=== PATIENT | female | born 1935 | race Caucasian/White ===

== ENCOUNTER → 2020-03-13 11:31 | Outpatient (BNVA) | payer MEDICARE, SELFPAY | PROVIDERS: Visit Provider Nurse Practitioner | DX: Z20.828 Contact with and (suspected) exposure to other viral communicable diseases (principal) | CPT/HCPCS: 87635 ==

== ENCOUNTER 2020-03-18 08:46 | Outpatient (CLI) | payer MEDICARE, SELFPAY ==
[2020-03-18 08:53] VITALS: BP 148/83; PULSE 82; RESP 19; TEMP 37.1; O2SAT 96
[2020-03-18 09:07] VITALS: BMI 26.5
[2020-03-18 09:08] VITALS: BP 142/84; PULSE 81; RESP 20; TEMP 36.7; O2SAT 96
--- NOTE | 2020-03-18 09:08 | AMB.MCA ---
Patient Information Referred by: Alo Symptom onset date: 03/11/20 COVID 19 common symptoms: positive cough, non-productive cough, dyspnea, fatigue and body aches COVID 19 other sytmptoms: negative chest pressure, chest pain, pleuritic pain, requiring oxygen, requiring more oxygen, respiratory distress, cyanosis, lethargy, confusion, new neurological complaints or other concerning symptoms Severity: moderate Treatment prior to arrival: none [facility] COVID test results: SARS-CoV-2 RNA (RT-PCR) Detected (NOT DETECTED) A 03/13/20 11:31 03/13/20 Criteria/Plan Inclusion/Exclusion Criteria weight >/= 40kg, + direct test </= 10 days ago and symptom onset </= 10 days ago age >/= 65 not requiring hospitalization, not requiring oxygen (if not chronically on oxygen) and no increase oxygen requirement (if chronically on oxygen) Patient education patient/caregiver received/reviewed fact sheet, Emergency Use Authorization/unapproved drug status discussed with patient/caregiver, alternatives to this treatment discussed with patient/caregiver, risks and benefits of medication reviewed with patient/caregiver, patient/caregiver given opportunity for questions, which were answered and patient/caregiver consents to receiving Monoclonal Antibody Treatment Plan for treatment Meets criteria for Monoclonal Antibody infusion Ordering Monoclonal Antibody infusion for today
[2020-03-18 09:55] VITALS: BP 150/91; PULSE 80; RESP 18; TEMP 36.8; O2SAT 96
[2020-03-18 10:23] VITALS: BP 138/72; PULSE 73; RESP 18; TEMP 36.8; O2SAT 95
--- NOTE | 2020-03-18 10:50 | PC.NURSE ---
Prn note Patient BAM infusion complete. Patient tolerated well with no side effects noted. Will continue to monitor post infusion.
[2020-03-18 11:35] VITALS: BP 148/83; PULSE 82; RESP 19; TEMP 37.1; O2SAT 96
--- NOTE | 2020-03-19 16:40 | DCPLANNER ---
Addendum entered by Hannah Cortez 03/31/20 13:39: manager small business called to check on patient after receiving the BAM infusion. manager small business spoke with patient, she stated that she was feeling much better, it took a little longer for her to feel better, but she is feeling much better. Original Note: manager small business had message that patient received the BAM infusion. manager small business called to check on patient after receiving the BAM infusion. Patient stated that she tolorated the infusion just fine. Before the infusion, patient had a bad headache, joint pain all over, very tired, no energy, low grade fever, and had a cough. After the infusion patient stated that she is still tired, very little energy, the joint pain is not as bad, still has a little cough. Patient stated that she will schedule a follow up appointment with primary care provider.
== END 2020-03-18 11:46 | disposition home or self-care (01) ==
DX: U07.1 COVID-19 (principal)
CPT/HCPCS: 96365; J7050

== ENCOUNTER → 2022-01-24 11:33 | Outpatient (BNVA) | payer MEDICARE, SELFPAY | PROVIDERS: PCP Clinical Nurse Specialist Adult Health; Visit Provider Clinical Nurse Specialist Adult Health | DX: I10 Essential (primary) hypertension (principal); N18.9 Chronic kidney disease, unspecified; E55.9 Vitamin D deficiency, unspecified | CPT/HCPCS: 80053; 82306; 85025 ==

== ENCOUNTER 2022-05-10 10:11 | Emergency (ER) | payer MEDICARE, SELFPAY ==
[2022-05-10 10:17] VITALS: BP 163/81; PULSE 47; RESP 16; TEMP 36.5; O2SAT 94
--- NOTE | 2022-05-10 10:29 | XR_ITS ---
WS: [id number] Right wrist, 3 views, 05/10/2022 Clinical Data: fall with deformity to wrist Comparison: None. Findings: There are comminuted impacted dorsally displaced fractures of the distal right radius and ulna. There is soft tissue swelling about the fractures. The carpal bones show no fractures. XR/XR wrist RT min 3V* 27680 Impression: Fractures of the distal right radius and ulna.
--- NOTE | 2022-05-10 10:29 | XR_ITS ---
WS: [id number] Right hand, 3 views, 05/10/2022 Clinical Data: fall with pain Comparison: None. Findings: There is deformity of the distal aspect of the right fifth finger middle phalanx. This coul d represent an old fracture. The soft tissues are unremarkable. The joint spaces are normal The fractures of distal right radius and ulna are visible. XR/XR hand RT min 3V* [id number] Impression: 1. Deformity of the distal aspect of the middle phalanx of the right fifth fing er which may represent an old fracture. 2. Fractures of the distal right radius and ulna.
--- NOTE | 2022-05-10 10:40 | PC.PHAR ---
pt states she takes care of her own medications-rx filled 01/24/22 90d/s for torsemide 10mg daily -pt states she takes 20-40mg eod prn [facility] states they havent filled a 20mg tab for the pt- pt states she takes clonazepam 2mg hs ext med history shows last filled 1mg bid on 03/29/22 30d/s-notes are made in the pharmacy comments
[2022-05-10 11:00] VITALS: BP 163/81; PULSE 100; RESP 14; O2SAT 94
--- NOTE | 2022-05-10 11:05 | W.ED.EXTPRO ---
Documented by User: KELVIN Amaya 05/10/22 13:22 HPI - Extremity Problem General: Chief complaint: Extremity Injury, Upper Stated complaint: right wrist pain Time Seen by Provider: 05/10/22 10:12 History of Present Illness: Patient is in today with right wrist pain. She reports that she fell this morning on outstretched wrist and has significant pain and swelling. She reports that she has allergy to almost every narcotic. She states it is not truly an allergy but it they all make her vomit. She reports that she cannot take Phenergan which seems to help a little bit Associated symptoms: Deny chest pain or fever(s) Review of Systems Const: Denies: fever(s), chills or body aches Eyes: Denies: change in vision or blurry vision Card: Denies: chest pain, palpitations, irregular heart rhythm, lightheadedness or syncope Resp: Denies: dyspnea, productive cough or non-productive cough GI: Denies: abdominal pain, nausea or vomiting : Denies: flank pain, difficulty voiding, dysuria, urinary frequency, urinary urgency or urinary hesitancy Musc: Reports: extremity pain, joint pain, joint swelling and limited range of motion; Denies: neck pain or back pain Neuro: Denies: headache(s), numbness in extremities or weakness in extremities PFSH ED PFSH: Medical History Anxiety Atrial fibrillation Chronic back pain Chronic kidney disease stage 2, not interested in continuing with nephrology COPD (chronic obstructive pulmonary disease) no smoking history Essential (primary) hypertension Generalized osteoarthritis GERD (gastroesophageal reflux disease) Heart murmur Hyperlipidemia Hyperparathyroidism due to renal insufficiency Hyperuricemia Morbid obesity Osteoporosis Seasonal allergies Vitamin D deficiency Surgical History H/O knee surgery bilateral knee replacement H/O: hysterectomy 2009 History of appendectomy History of bunionectomy right foot Hx of unilateral nephrectomy 2009 S/P patent foramen ovale closure 1994 Family History Mother Hypertension Hypothyroidism Father CAD (coronary artery disease) Social History Smoking and tobacco status: never smoked Alcohol intake: never Marital status: Current occupational status: retired Physical Exam Const: COMMON NORMALS: patient oriented x3 and alert OTHER: Patient is in obvious pain Neck/C-Spine: COMMON NORMALS: no JVD Resp: COMMON NORMALS: normal respiratory effort, No use of accessory muscles and clear to auscultation bilaterally AUSCULTATION: clear to auscultation bilaterally Cardio: COMMON NORMALS: no JVD RATE: bradycardic RHYTHM: abnormal rhythm irregularly irregular Extremity: NARRATIVE EXTREMITY EXAM: There is obvious deformity of the right wrist. Radial and ulnar pulses are intact. Fingers are warm and sensation is intact. Patient is unable to move the fingers related to pain. Neuro: COMMON NORMALS: patient oriented x3 SENSORIUM/ORIENTATION: Yes alert Course ED course: 1108?consulted with ER physician, Dr. Urrutia, to review patient's x-rays as she will need closed reduction of the fracture. Discussed patient's pain and reports of vomiting with almost any narcotic. ER physician advised that he will order the conscious sedation to do the closed reduction and take care of pain at that time. No pain meds were given prior to conscious sedation as we did not want to increase patient's risk for aspiration given that she says she vomits with any kind of narcotics. 1202?Dr. Urrutia performed conscious sedation at bedside with RT and nursing staff present. Closed reduction of the fracture was done. Postreduction x-rays taken. Splint is applied. Patient tolerated procedure well. Vital signs remained stable. Postreduction x-rays showed some improvement in alignment. Patient reports improved pain. States that is only an ache now. Consulted with Dr. Urrutia for pain control for home use. Prescribe patient Phenergan to help with nausea and Dr. Urrutia prescribed hydrocodone 5 mg 325 mg 1 p.o. every 6 hours as needed for pain #12 no refills. Vital Signs: Vital signs: Vital Signs Temperature 97.7 F 05/10/22 10:17 Pulse Rate 58 L 05/10/22 12:03 Respiratory Rate 14 05/10/22 12:03 Blood Pressure 159/68 05/10/22 12:03 Pulse Oximetry 97 05/10/22 12:03 Oxygen Delivery Me thod 05/10/22 12:03 Oxygen Flow Rate 4 05/10/22 12:03 MDM - Extremity (Nontraumatic) Medical Decision Making [id number] female in today after a fall onto her outstretched right wrist. Shows distal radius and ulnar fracture of the right wrist comminuted. Consulted with Dr. Urrutia, ER physician. He did a closed reduction in the ER with conscious sedation. He consulted for outpatient pain control. Educated patient about possible benefits and side effects of medications provided. Referral to case management to help facilitate orthopedic follow-up. Advised patient of conservative treatments at home including ice, rest, elevation of the extremity. Advised patient to return to ER as needed for new or worsening symptoms. Lab Data Radiology Impressions Hand X-Ray 05/10/22 10:29 Impression: 1. Deformity of the distal aspect of the middle phalanx of the right fifth finger which may represent an old fracture. 2. Fractures of the distal right radius and ulna. Wrist X-Ray 05/10/22 12:04 Impression: Reduction of distal right radial and ulnar fractures. Discharge Plan Discharge Patient Disposition: Home Clinical Impression: Fracture of distal end of radius and ulna Qualifiers: Encounter type: initial encounter Fracture type: closed Laterality: right Qualified Code(s): S52.501A - Unspecified fracture of the lower end of right radius, initial encounter for closed fracture Condition: Stable Prescriptions: New promethazine 12.5 mg tablet 12.5 mg PO Q6H PRN (Reason: nausea and vomiting) Qty: 12 0RF No Action metoprolol tartrate 25 mg tablet 12.5 mg PO BID Qty: 90 3RF omeprazole 20 mg capsule,delayed release(DR/EC) 20 mg PO DAILY Qty: 90 3RF lovastatin 20 mg tablet 20 mg PO BEDTIME clonazepam 1 mg tablet 2 mg PO BEDTIME montelukast 10 mg tablet 10 mg PO BEDTIME Ventolin HFA 90 mcg/actuation HFA aerosol inhaler 1 - 2 inh INHALATION Q4H PRN (Reason: Shortness Of Breath) torsemide 10 mg tablet 20 - 40 mg PO EVERY OTHER DAY PRN (Reason: swelling) Discharge Orders: Discharge ED (Routine); Ordered 05/10/22 Ordered By: Summer Spence Referrals: Robby Prajapati NP [Primary Care Provider] - Discharge Diet: Usual diet Discharge Activity: Limit activity as instructed Patient Instructions: Wrist Fracture in Adults (ED) Activity Restrictions/Additional Instructions: Pain medications provided by Dr. Urrutia. I provided Phenergan to help with nausea that you have associated with pain medication use. Take medications as prescribed as directed when needed for pain. Do not take any other medications that make you sleepy with these medications. Ice, rest, elevate the extremity. Follow-up with orthopedic surgery for continued evaluation and treatment. I have placed a referral to case management to help facilitate orthopedic follow-up. 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 [employer] Documented by User: Derek Urrutia, 05/10/22 15:16 HPI - Extremity Problem General: Chief complaint: Extremity Injury, Upper Stated complaint: right wrist pain Time Seen by Provider: 05/10/22 10:12 [facility] ED PFSH: Medical History Anxiety Atrial fibrillation Chronic back pain Chronic kidney disease stage 2, not interested in continuing with nephrology COPD (chronic obstructive pulmonary disease) no smoking history Essential (primary) hypertension Generalized osteoarthritis GERD (gastroesophageal reflux disease) Heart murmur Hyperlipidemia Hyperparathyroidism due to renal insufficiency Hyperuricemia Morbid obesity Osteoporosis Seasonal allergies Vitamin D deficiency Surgical History H/O knee surgery bilateral knee replacement H/O: hysterectomy 2009 History of appendectomy History of bunionectomy right foot Hx of unilateral nephrectomy 2008 S/P patent foramen ovale closure 1994 Family History Mother Hypertension Hypothyroidism Father CAD (coronary artery disease) Social History Smoking and tobacco status: never smoked Alcohol intake: never Marital status: Current occupational status: retired Course Vital Signs: Vital signs: Vital Signs Temperature 97.7 F 05/10/22 10:17 Pulse Rate 58 L 05/10/22 12:03 Respiratory Rate 14 05/10/22 12:03 Blood Pressure 159/68 05/10/22 12:03 Pulse Oximetry 97 05/10/22 12:03 Oxygen Delivery Me thod 05/10/22 12:03 Oxygen Flow Rate 4 05/10/22 12:03 MDM - Extremity (Nontraumatic) Medical Records I saw and evaluated the patient with the midlevel provider today and assisted in the conscious sedation and closed reduction of the right wrist that resulted in improved alignment but not optimal I tried manipulated it a little bit more postreduction film but it seemed like it was somewhat unstable. She was neurovascularly intact and we will refer to orthopedics for further evaluation. Lab Data Radiology Impressions Hand X-Ray 05/10/22 10:29 Impression: 1. Deformity of the distal aspect of the middle phalanx of the right fifth finger which may represent an old fracture. 2. Fractures of the distal right radius and ulna. Wrist X-Ray 05/10/22 12:04 Impression: Reduction of distal right radial and ulnar fractures. Discharge Plan Discharge Patient Disposition: Home Clinical Impression: Fracture of distal end of radius and ulna Qualifiers: Encounter type: initial encounter Fracture type: closed Laterality: right Qualified Code(s): S52.501A - Unspecified fracture of the lower end of right radius, initial encounter for closed fracture Condition: Stable Prescriptions: New promethazine 12.5 mg tablet 12.5 mg PO Q6H PRN (Reason: nausea and vomiting) Qty: 12 0RF No Action metoprolol tartrate 25 mg tablet 12.5 mg PO BID Qty: 90 3RF omeprazole 20 mg capsule,delayed release(DR/EC) 20 mg PO DAILY Qty: 90 3RF lovastatin 20 mg tablet 20 mg PO BEDTIME clonazepam 1 mg tablet 2 mg PO BEDTIME montelukast 10 mg tablet 10 mg PO BEDTIME Ventolin HFA 90 mcg/actuation HFA aerosol inhaler 1 - 2 inh INHALATION Q4H PRN (Reason: Shortness Of Breath) torsemide 10 mg tablet 20 - 40 mg PO EVERY OTHER DAY PRN (Reason: swelling) Discharge Orders: Discharge ED (Routine); Ordered 05/10/22 Ordered By: Summer Spence Referrals: Alo,Robby L, PNEUMATIC DEICER INSPECTOR [Primary Care Provider] - Discharge Diet: Usual diet Discharge Activity: Limit activity as instructed Patient Instructions: Wrist Fracture in Adults (ED) Activity Restrictions/Additional Instructions: Pain medications provided by Dr. Urrutia. I provided Phenergan to help with nausea that you have associated with pain medication use. Take medications as prescribed as directed when needed for pain. Do not take any other medications that make you sleepy with these medications. Ice, rest, elevate the extremity. Follow-up with orthopedic surgery for continued evaluation and treatment. I have placed a referral to case management to help facilitate orthopedic follow-up. Return to the ER as needed for any new or worsening symptoms Coding Level of Care Code ED Senior Ui Ux Designer for Matt Herzog
[2022-05-10 11:48] VITALS: BP 155/102; PULSE 62; RESP 14; O2SAT 97
[2022-05-10] MEDS: propofol 10 mg/mL SDV 20 mL 100 MG IVP (11:48)
[2022-05-10 11:59] VITALS: BP 158/71; PULSE 58; RESP 14; O2SAT 98
[2022-05-10 12:03] VITALS: BP 159/68; PULSE 58; RESP 14; O2SAT 97
--- NOTE | 2022-05-10 12:04 | XR_ITS ---
WS: [id number] Right wrist, 3 views postreduction, 05/10/2022, 1200 hours Clinical Data: post-reduction Comparison: Right wrist, 05/10/2022, 1037 hours Findings: There is a fiberglass splint reducing the distal right radial and ulnar fractures. XR/XR wrist RT min 3V* 24711 Impression: Reduction of distal right radial and ulnar fractures.
--- NOTE | 2022-05-11 09:48 | DCPLANNER ---
Addendum entered by Hannah Cortez 05/20/22 07:27: Patient had a follow up appointment scheduled with ortho - patient did attend appointment. Original Note: clinic office manager had message to schedule a follow up appointment for patient with ortho. clinic office manager sent patients information to the front office staff at ortho. Patients information will be printed and reviewed. Clinic will call patient with appointment information.
== END 2022-05-10 13:45 | disposition home or self-care (01) ==
PROVIDERS: Emergency Provider Nurse Practitioner Family; PCP Clinical Nurse Specialist Adult Health
DX: S52.501A Unspecified fracture of the lower end of right radius, initial encounter for closed fracture (principal); S52.601A Unspecified fracture of lower end of right ulna, initial encounter for closed fracture; W19.XXXA Unspecified fall, initial encounter
CPT/HCPCS: 25565; 73110; 73130; 99285; J2704

== ENCOUNTER → 2022-05-16 14:07 | Outpatient (BNVA) | payer MEDICARE, SELFPAY | PROVIDERS: PCP Clinical Nurse Specialist Adult Health; Referring Provider Nurse Practitioner Family; Visit Provider Student in an Organized Health Care Education/Training Program | DX: S52.601A Unspecified fracture of lower end of right ulna, initial encounter for closed fracture (principal); S52.531A Colles' fracture of right radius, initial encounter for closed fracture; W01.0XXA Fall on same level from slipping, tripping and stumbling without subsequent striking against object, initial encounter; M18.11 Unilateral primary osteoarthritis of first carpometacarpal joint, right hand | CPT/HCPCS: 73110; 99204 ==

== ENCOUNTER 2022-05-18 08:58 | Day surgery (SDC) | payer MEDICARE, SELFPAY ==
[2022-05-17 17:13] VITALS: BMI 29.2
[2022-05-18] VITALS (12 sets, daily range): BP systolic 138–168; BP diastolic 78–98; PULSE 58–71; RESP 14–20; TEMP 35.7–36.6; O2SAT 93–100
--- NOTE | 2022-05-18 | XR_ITS ---
WS: [id number] XR wrist RT min 3V* [id number] REASON FOR EXAM: DENIS PICS FINDINGS: Plate and screw fixation of transverse fracture of the distal right radial metaphysis. Fracture fragments and surgical appliances are in proper position and alignment. Again is noted the oblique fracture of the distal right ulnar metadiaphysis. Again noted is the widened scapholunate interval with ossification. XR/XR wrist RT min 3V* 06951 IMPRESSION: Fixation of distal right radial fracture without abnormality.
--- NOTE | 2022-05-18 09:52 | ECG_ITS ---
[facility] Test Date: 2022-05-18 Pat Name: J Luis Echavarria Department: Room: Gender: Female Animal Attendants And Trainers: : 1935 Requested By: Harini Maharaj Order Number: [id number] Rajeev MD: Tk Sales M.D. Measurements Intervals [place] Rate: 46 P: 0 VT: 0 QRS: 62 QRSD: 118 T: -58 QT: 456 QTc: 401 Interpretive Statements ATRIAL FIBRILLATION WITH SLOW VENTRICULAR RESPONSE INCOMPLETE RIGHT BUNDLE BRANCH BLOCK [90+ ms QRS DURATION, TERMINAL R IN V1/V2, 40+ ms S IN I/aVL/V4/V5/V6] ST DEVIATION AND MODERATE T-WAVE ABNORMALITY, CONSIDER ANTEROLATERAL ISCHEMIA [-0.1+ mV T-WAVE IN V3-V6] ST DEVIATION AND MODERATE T-WAVE ABNORMALITY, CONSIDER INFERIOR ISCHEMIA [-0.1+ mV T-WAVE IN II/aVF] No previous ECG available for comparison Electronically Signed On 05-18-2022 15:12:48 AUTOMOTIVE ENGINEERING TEACHER by Tk Sales M.D. [email or web address]
[2022-05-18] MEDS: acetaminophen 1,000 MG/100 ML PIGGYBACK 400 MG IV (10:10)
--- NOTE | 2022-05-18 10:15 | ANES.PREANE2 ---
Pre-Anesthetic Assessment Height/Weight: Height 1.52 m Weight 68.039 kg Temp Pulse Resp BP Pulse Ox O2 Del Method 96.2 F L 60 17 155/86 93 05/18/22 10:04 05/18/22 10:04 05/18/22 10:04 05/18/22 10:04 05/18/22 10:04 05/18/22 10:04 Preop Diagnosis: Right distal radius and distal ulna fracture Operation Date: 05/18/22 10:25 Proposed Procedures p Right distal radius open reduction and internal fixation 00090 with possible open reduction and internal fixation distal ulnar T14.8XXA(Right) - Bakari Payne, DO Familial anesthetic complications: None Was Beta Alondra taken within 24 hours: Yes Was Clonidine taken within 24 hours: N/A Last intake: Intake Last Liquid Date 05/17/22 Last Liquid Time 17:30 Last Solid Date 05/17/22 Last Solid Time 17:30 Social No alcohol and No tobacco Exam alert, oriented x 3, clear to auscultation bilaterally and regular rate & rhythm Airway Mallampati: Class II Pulmonary Chronic Obstructive Pulmonary Disease CV/HEM Atrial Fibrillation and Hypertension Hx of what is most likely PFO repair in 1994, Patient states they closed a whole in her heart at the top Chronic Renal Insufficiency (renal cancer s/p nephrectomy) Anesthetic Plan ASA status: 3 Anesthesia: General and Regional (specify below) Risk of > 500 ml blood loss (7ml/kg in children): No Medications/Allergies Home Medications Medication Instructions Recorded Confirmed Last Taken Type omeprazole 20 mg capsule,delayed 20 mg PO DAILY #90 caps 01/24/22 05/18/22 05/17/22 Rx release lovastatin 20 mg tablet 20 mg PO BEDTIME 01/25/22 05/18/22 05/17/22 History albuterol sulfate 90 mcg/actuation 1 - 2 inh inhalation Q4H PRN 05/10/22 05/18/22 05/17/22 History aerosol inhaler (Ventolin HFA) Shortness Of Breath montelukast 10 mg tablet 10 mg PO BEDTIME 05/10/22 05/18/22 05/17/22 History promethazine 12.5 mg tablet 12.5 mg PO Q6H PRN nausea and 05/10/22 05/17/22 1 Day Ago Rx vomiting #12 tabs ~05/16/22 torsemide 10 mg tablet 20 - 40 mg PO EVERY OTHER DAY PRN 05/10/22 05/18/22 05/17/22 History swelling clonazepam 0.5 mg tablet 1 mg PO BID #120 tabs 05/12/22 05/18/22 05/17/22 Rx metoprolol tartrate 25 mg tablet 12.5 mg PO BID 05/17/22 05/18/22 05/18/22 08:00 History Allergies Allergy/AdvReac Type Severity Reaction Status Date / Time codeine Allergy Intermediate vomiting Verified 05/17/22 17:09 hydroxyzine [From Vistaril] Allergy Intermediate palpatation Verified 05/17/22 17:09 s warfarin [From Coumadin] Allergy Intermediate nose bleed Verified 05/17/22 17:09 hydrochlorothiazide Allergy Mild unknown Verified 05/17/22 17:09 hydromorphone [From Dilaudid] Allergy Mild unknown Verified 05/17/22 17:09 lisinopril Allergy Mild ADR-Cough Verified 05/17/22 17:09 duloxetine [From Cymbalta] Allergy unknown Verified 05/17/22 17:09 [facility] Anesthesia Medical History Anxiety Atrial fibrillation Chronic back pain Chronic kidney disease stage 2, not interested in continuing with nephrology COPD (chronic obstructive pulmonary disease) no smoking history Essential (primary) hypertension Generalized osteoarthritis GERD (gastroesophageal reflux disease) Heart murmur Hyperlipidemia Hyperparathyroidism due to renal insufficiency Hyperuricemia Morbid obesity Osteoporosis Seasonal allergies Vitamin D deficiency Surgical History H/O knee surgery bilateral knee replacement H/O: hysterectomy 2009 History of appendectomy History of bunionectomy right foot Hx of unilateral nephrectomy 2008 S/P patent foramen ovale closure 1994 Family History Mother Hypertension Hypothyroidism Father CAD (coronary artery disease) Social History Smoking and tobacco status: never smoked Alcohol intake: never Marital status: Current occupational status: retired Data Anesthesia 05/18/22 10:10 Cardiac Studies: No Data to Display
[2022-05-18] MEDS: sodium chloride 0.9% 1,000 ML 30 ML IV (10:25)
--- NOTE | 2022-05-18 10:30 | W.PM.OPSUD ---
Surgery/Procedure H&P Update DATE OF PROCEDURE: May 18, 2022 DATE H&P PERFORMED: 05/16/22 CHANGES TO PREVIOUS DOCUMENTATION: None PREOP DIAGNOSIS: Right distal radius and distal ulna fracture PRIMARY INDICATION FOR PROCEDURE: Right distal radius and distal ulna fracture displaced and angulated PLANNED PROCEDURE: Operation Date: 05/18/22 10:25 Proposed Procedures p Right distal radius open reduction and internal fixation 52501 with possible open reduction and internal fixation distal ulnar T14.8XXA(Right) - Bakari Ashford DO
[2022-05-18 10:35] LABS: Anion Gap 15.1 (5-19); Blood Urea Nitrogen 27 mg/dL (8-23); Calcium 9.7 mg/dL (8.5-10.5); Carbon Dioxide 25 mmol/L (22-29); Chloride 104 mmol/L (98-107); Glucose 97 mg/dL (65-115); Osmolality Calculated 295 mOsm/kg (285-295); Potassium 4.1 mmol/L (3.5-5.1); Sodium 140 mmol/L (136-145)
--- NOTE | 2022-05-18 10:50 | ANES.PROC ---
Anesthesia Procedures Procedure/Date: 05/18/22 Nerve Block ^: Nerve Block 1: Main Anesthesia: general anesthesia Time Out Performed: Yes Consent: requested by attending/covering physician, from patient, from other, risks and benefits reviewed, patient agrees to proceed and emergency procedure Nerve block location: axillary (R) Anesthesia monitors applied: pulse oximetry, EKG, BP cuff and oxygen Nerve block position: supine Anesthetic Used: ropivicaine 0.5% (30 ml) and with decadron (4 mg) Ultrasound used to: recognize landmarks and visualize and ID brachial plexus Nerve Stimulator Used?: No Interscalene/Femoral BLK: 2 stimuplex 22 g needle used for position and inplane approach, visualize local anesthetic spread and no vascular puncture identified Injection: neg aspiration of heme Patient Tolerated Procedure: well and no complications
[2022-05-18] MEDS: ceFAZolin 2,000 MG in sodium chloride 0.9% (plus) 50 ML 100 MG IV (10:51)
--- NOTE | 2022-05-18 10:58 | SUR.PREOP ---
toradol 30mg iv not given per pt states that she only has one kidney and spoke with dr jean with anesthesia and she stated not to give this rx due to her kidney function
--- NOTE | 2022-05-18 12:47 | P.OP_ITS ---
Brief Operative Note Date of procedure: 05/18/22 Pre-op diagnosis: Displaced right distal radius and distal ulnar fracture Post-op diagnosis: same (Three-part right distal radius intra-articular) Procedure Done: Open reduction internal fixation right distal radius fracture 3 part intra- articular Open reduction internal fixation right distal ulna Surgeon: Bakari Ashford Estimated blood loss (mL): 15 Complications: none Post-op Plan: Patient taken to PACU in stable condition recovering well. Splint on in place clean dry and intact will be nonweightbearing to the right upper extremity. Maintain splint until follow-up. We will follow-up with me in the office in 2 weeks. Will receive appropriate pain medication and discharge instructions. Patient understands agrees with current plan. All questions answered. Condition: stable Disposition: same day Coding Level of Care Code Acute Code for Matt Herzog
--- NOTE | 2022-05-18 12:48 | PM.PACU ---
PACU note Narrative: Patient taken to PACU in stable condition recovering well. Pain controlled. Regional anesthesia still in effect unable assess motor or sensory at this time. Fingertips warm well-perfused brisk capillary refill less than 2 seconds splint on in place clean dry and intact. Exam: awake Disposition: discharged
--- NOTE | 2022-05-18 12:48 | PM.OP ---
Operative Report Date of procedure: May 18, 2022 Pre-op diagnosis: Preop Diagnosis Right distal radius and distal ulna fracture Procedure: Post-op diagnosis: Same Procedure done: Right distal radius open reduction internal fixation, intra-articular 3 part Open reduction internal fixation right distal ulna fracture Implants: RIght distal radius: Arthrex 5-hole narrow volar distal radius plate with 4 locking screws distally 2.4 mm, 3 proximal locking screws and 1 cortical screw 3.5 mm proximally Right distal ulna -Attempted placement of fully threaded cannulated 3.5 screw however unstable fixation subsequently removed and placed for 1.1 mm Arthrex K wires Surgeon: Bakari Ashford DO Estimated blood loss: 15mL Tourniquet time: 66 minutes IV fluids: See anesthesia record Complications: None Condition: stable Disposition: Same-day Brief History: Patient was seen and worked up in the outpatient setting after sustaining a ground-level fall on outstretched right wrist.? sHe was found to have a displaced and angulated intra-articular right distal radius and distal ulna fracture.? Images reviewed at the outpatient setting with patient confirm preoperative diagnosis.? We talked about treatment options as far as nonoperative and operative intervention.? We talked about the risk benefits complication alternatives to surgical and nonsurgical treatment options.? Through shared decision making with goals for earlier wrist mobility and less cast immobilization and given patients dominate hand recommended surgical intervention right distal radius open reduction internal fixation and possible ORIF Distal ulna.? ? Through shared decision making she she elects to proceed with surgical intervention she understands the risk benefits complication alternatives to surgical treatment options and elects to proceed.? All questions answered. Procedure: Patient seen and evaluated in the preoperative holding area.? Consent reviewed and signed with patient.? Correct extremities were marked and consent was reviewed and signed.? She was seen and evaluated by anesthesia department.? Underwent regional anesthesia. Once cleared for surgery she was taken back to the operative suite.? Patient was then transported into the operative suite transferred furred to an OR table all bony prominences well-padded patient was appropriate secured to bed in supine position.? An armboard was applied to the right upper extremity.? The right upper extremity had a nonsterile tourniquet applied to the right upper arm.? She subsequently was then prepped and draped in standard orthopedic fashion she underwent anesthesia per the anesthesia department.? A final timeout was performed.? Patient received appropriate preoperative antibiotics. Esmarch was used exsanguinate the right upper extremity and tourniquet was insufflated to 250 mmHg. A standard modified FCR volar approach was performed to the right distal radius.? Sharp scalpel incision through skin and subcutaneous tissue.? I then switched to Littler dissection scissors identify the FCR tendon releases out of the sheath both proximally and distally mobilized the tendon ulnarly and then subsequently incised the floor of the FCR tendon sheath with care to just incise the floor.? I then bluntly sweep the FPL tendon muscle belly ulnarly and placed blunt self-retaining retractor.? At this point time I direct visualization of the pronator quadratus which was incised in standard 7 fashion off the radial and distal border in the distal radius and fracture site was scraped clean of interposed muscle belly.? I then identified the 3 part intra-articular right distal radius fracture.? This was subsequently opened above and freed of interposing muscle belly as well as periosteum and fracture hematoma.? I did have to utilize my [place] which was placed through the fracture pattern and tamp up the dorsal intra-articular comminution fracture fragments. ?Once this was cleared I then manually performed a reduction maneuver and had appropriate anatomic region of the volar cortex.? This was confirmed with mini C arm in multiple orthogonal imaging.? At this point time? I selected a Arthrex anatomic distal radius plate utilizing a narrow 5-hole plate which would have appropriate spread and fit on patient's smaller distal radius as well as the added proximal fixation given patient's older age and poor bone quality. This was then placed up to the distal radius while maintaining my reduction pins were placed distally and proximally to confirm appropriate placement of the plate along the distal radius.? Minor adjustments were made and once I was satisfied I then subsequently drilled a bicortical 3.5 screw proximally in the oblong hole to allow for appropriate sliding of the distal radius plate appropriately to perfect position on the distal radius.? This had excellent fixation and purchase and brought the plate to bone.? While maintaining my reduction I then confirmed in multiple orthogonal imaging that my plate was in appropriate position.? Once satisfied with my position I then subsequently placed the peek targeting guide on the distal locking screws with Arthrex.? The locking guide was then subsequently loaded and I subsequently drilled and placed a fully threaded cortical screw to compress the plate to bone for the distal fracture fragment.? This was performed with plan to then remove this and placed a shorter locking screw had bicortical fixation with excellent purchase and appropriate reduction of my volar tilt and bringing plate to bone of the distal fragment and plate.? Once I was satisfied with my plate position as well as reduction of the distal radius which was confirmed on AP oblique and lateral imaging I then subsequently drilled measured and placed 3 locking screws around this cortical screw.? Then I subsequently removed the cortical screw and placed a shorter locking screw that did not penetrate the dorsal cortex.? This completed my distal fixation.? I then turned my attention and screwed in the locking guides for my final to screws proximally these were then subsequently drilled measured and appropriate length locking screws were then placed proximally with excellent fixation and locking technology into the plate.? This completed my distal radius construct.? The peek guide was subsequently removed and final imaging of the right distal radius open reduction internal fixation was taken of AP lateral as well and is orthogonal imaging.? I then took a inclination view which showed my radial styloid screw was out of the penetration of the joint.? All my distal screws were appropriate length did not penetrate dorsal cortex and did not penetrate the joint.? Wrist was then taken through pronation supination and stressed the DRUJ which was found to be extremely unstable and his results elected to proceed with ORIF left distal ulna. Initial plan was for 3 5 fully threaded cannulated screw this would be subsequently overdrilled to accommodate for minimal compression and just be an intramedullary screw to hold our fracture positioning. A single K wire was advanced from the ulnar styloid at the starting point while keeping the wrist in neutral position trying to attempt to close reduction of the fracture site this was unsuccessful and as result determined to open fracture site. I made a standard direct lateral incision over the fracture site of the distal ulna on the subcutaneous border. Care was made to dissect and identify the dorsal cutaneous branch and this was protected throughout the case. Next identified the fracture site and then immediately was able to perform a closed reduction with my fingers and advanced the K wire intramedullary. This had satisfactory reduction and in order to hold rotational stability an additional K wire was advanced. I then subsequently loaded the cannulated drill bit with Arthrex and overdrilled to accommodate for no excessive compression or shortening of the fracture site. I then took appropriate measurement and attempted to advance a 3.5 fully threaded cannulated screw. Upon passing this unfortunately lost fixation and splinted the distal fracture fragment. I then subsequently removed the screw remove the K wires reobtained reduction as well as more satisfied with this and fixation with my K wires and plan was for percutaneous K wire fixation to hold the distal ulna for later removal. I then subsequently through my open incision maintained acceptable reduction of the distal ulna I then readvanced 2 K wires intramedullary through the ulnar styloid to connect the distal and proximal fracture fragments to maintain an anterior to posterior appropriate plane. Next while holding the reduction I then advanced 2 K wires through the DRUJ joint to create a stable fixation with the DRUJ joint with the distal fracture fragment in the distal radius. These were advanced appropriate position and had excellent fixation and stability and this was confirmed with multiple orthogonal images with mini C arm. This point time I was satisfied with my distal ulnar fixation pins were then subsequently cut at appropriate length and Dk balls were attached. Plan for later office K wire pin removal. The wounds was then thoroughly irrigated.? Tourniquet was then subsequently deflated.? Hemostasis satisfactory with bipolar electrocautery.? I then subsequently placed interrupted 3-0 Vicryl sutures for subcutaneous tissue and then subsequently placed a running Vicryl suture for skin closure of both of the ulna incision as well as the volar distal radius incision. Xeroform for the incisions was then dressed with 4 x 4's Kerlix cast padding and a volar Ortho-Glass splint was then applied with Ric wrap.? Patient was then awakened from anesthesia and taken to PACU in stable condition Disposition: Patient taken to PACU in stable condition recovering well regional anesthesia still in effect. Will receive appropriate discharge instructions as well as pain medication postoperatively the splint on in place until follow-up. Plan will be for K wire removal roughly around week 4?6 in the office. Patient to follow-up with me in the office in 2 weeks. Contact the office for any questions or concerns
--- NOTE | 2022-05-18 12:51 | PC.NURSE ---
Awake. Oral airway removed
--- NOTE | 2022-05-18 14:45 | ANE.PACU2 ---
Inpatient post-anesthesia follow up: Airway intact: Yes Vital signs: Temperature 97.9 F Pulse Rate 58 Respiratory Rate 16 Blood Pressure 157/84 Pulse Oximetry 94 Oxygen Delivery Me thod Room Air Oxygen Flow Rate 8 Fraction of Inspir ed Oxygen Hydration adequate: Yes Nausea and vomiting: No Pain level: 1 Mental status: Baseline
== END 2022-05-18 14:15 | disposition home or self-care (01) ==
PROVIDERS: Anesthesiology; PCP Clinical Nurse Specialist Adult Health; Visit Provider Student in an Organized Health Care Education/Training Program
PROC: (CPT 25575; principal; 2022-05-18 10:15)
DX: S52.571A Other intraarticular fracture of lower end of right radius, initial encounter for closed fracture (principal); S52.601A Unspecified fracture of lower end of right ulna, initial encounter for closed fracture; I12.9 Hypertensive chronic kidney disease with stage 1 through stage 4 chronic kidney disease, or unspecified chronic kidney disease; N18.2 Chronic kidney disease, stage 2 (mild); J44.9 Chronic obstructive pulmonary disease, unspecified; E78.5 Hyperlipidemia, unspecified; K21.9 Gastro-esophageal reflux disease without esophagitis; W01.0XXA Fall on same level from slipping, tripping and stumbling without subsequent striking against object, initial encounter; Z88.5 Allergy status to narcotic agent
CPT/HCPCS: 25575; 36415; 73110; 76000; 80048; 93005; C1713; J0131; J0690; J1100; J2405; J2704; J2795; J3010; J7030

== ENCOUNTER → 2022-05-30 15:49 | Outpatient (BNVA) | payer MEDICARE, SELFPAY | PROVIDERS: PCP Clinical Nurse Specialist Adult Health; Visit Provider Student in an Organized Health Care Education/Training Program | DX: S52.501A Unspecified fracture of the lower end of right radius, initial encounter for closed fracture (principal); S52.601A Unspecified fracture of lower end of right ulna, initial encounter for closed fracture; X58.XXXA Exposure to other specified factors, initial encounter | CPT/HCPCS: 73110 ==

== ENCOUNTER 2022-05-30 16:07 | Outpatient (CLI) | payer MEDICARE, SELFPAY | END 2022-05-30 16:08 | disposition home or self-care (01) | LOC: SPT 05-31 10:13 | PROVIDERS: PCP Clinical Nurse Specialist Adult Health; Visit Provider Student in an Organized Health Care Education/Training Program | DX: Z46.89 Encounter for fitting and adjustment of other specified devices (principal); S52.501D Unspecified fracture of the lower end of right radius, subsequent encounter for closed fracture with routine healing; S52.601D Unspecified fracture of lower end of right ulna, subsequent encounter for closed fracture with routine healing; X58.XXXD Exposure to other specified factors, subsequent encounter | CPT/HCPCS: 20670; 97760; 99024; L3982 ==

== ENCOUNTER → 2022-06-20 13:58 | Outpatient (BNVA) | payer MEDICARE, SELFPAY | PROVIDERS: PCP Clinical Nurse Specialist Adult Health; Visit Provider Student in an Organized Health Care Education/Training Program | DX: S52.501A Unspecified fracture of the lower end of right radius, initial encounter for closed fracture (principal); S52.601A Unspecified fracture of lower end of right ulna, initial encounter for closed fracture; X58.XXXA Exposure to other specified factors, initial encounter | CPT/HCPCS: 73110; 99024 ==

== ENCOUNTER 2022-06-23 12:21 | Outpatient (RCR) | payer MEDICARE, SELFPAY ==
--- NOTE | 2022-06-23 14:20 | XR_ITS ---
WS: [id number] EXAMINATION: XR abdomen min 2V 30181 REASON FOR EXAM: decreased BMs, nausea COMPARISON: None available. ORDER DATE: 06/23/2022 2:20 PM FINDINGS: There is a nonspecific colonic gas pattern with scattered fecal content and gas. There is no sign of significant small bowel dilation. Numerous calcification are seen superimposing the right upper quad rant the largest being more solid in appearance and 2 cm in size probably represents a gallstone. Oth ers may be granulomatous in the lung bases or ej. Surgical clips are noted in the left upper abdom en along with extensive vascular calcifications. There is a marked S scoliosis IMPRESSION: No acute findings
== END 2022-07-10 23:59 | disposition home or self-care (01) ==
LOC: SOT 12:21
PROVIDERS: PCP Clinical Nurse Specialist Adult Health; Visit Provider Student in an Organized Health Care Education/Training Program
DX: Z47.89 Encounter for other orthopedic aftercare (principal)
CPT/HCPCS: 74019; 97110; 97140; 97166

== ENCOUNTER 2022-07-11 06:00 | Outpatient (RCR) | payer MEDICARE, SELFPAY | END 2022-08-10 23:59 | disposition home or self-care (01) | LOC: SOT 06:00 | PROVIDERS: PCP Clinical Nurse Specialist Adult Health; Visit Provider Student in an Organized Health Care Education/Training Program | DX: Z47.89 Encounter for other orthopedic aftercare (principal) | CPT/HCPCS: 97022; 97110; 97140; 99024; L3924 ==

== ENCOUNTER 2022-07-11 10:24 | Outpatient (CLI) | payer MEDICARE, SELFPAY | END 2022-07-11 10:25 | disposition home or self-care (01) | LOC: SPT 07-12 10:25 | PROVIDERS: PCP Clinical Nurse Specialist Adult Health; Visit Provider Student in an Organized Health Care Education/Training Program | DX: Z46.89 Encounter for fitting and adjustment of other specified devices (principal); S52.591D Other fractures of lower end of right radius, subsequent encounter for closed fracture with routine healing; S52.691D Other fracture of lower end of right ulna, subsequent encounter for closed fracture with routine healing; X58.XXXD Exposure to other specified factors, subsequent encounter | CPT/HCPCS: 97760; L3908 ==

== ENCOUNTER → 2022-07-11 13:55 | Outpatient (BNVA) | payer MEDICARE, SELFPAY | PROVIDERS: PCP Clinical Nurse Specialist Adult Health; Visit Provider Student in an Organized Health Care Education/Training Program | DX: S52.501D Unspecified fracture of the lower end of right radius, subsequent encounter for closed fracture with routine healing (principal); S52.601D Unspecified fracture of lower end of right ulna, subsequent encounter for closed fracture with routine healing; X58.XXXD Exposure to other specified factors, subsequent encounter | CPT/HCPCS: 73110 ==

== ENCOUNTER 2022-08-11 06:00 | Outpatient (RCR) | payer MEDICARE, SELFPAY | END 2022-09-09 23:59 | disposition home or self-care (01) | LOC: SOT 06:00 | PROVIDERS: PCP Clinical Nurse Specialist Adult Health; Visit Provider Student in an Organized Health Care Education/Training Program | DX: Z47.89 Encounter for other orthopedic aftercare (principal) | CPT/HCPCS: 97022; 97110; 97140 ==

== ENCOUNTER → 2022-09-05 14:02 | Outpatient (BNVA) | payer MEDICARE, SELFPAY | PROVIDERS: PCP Clinical Nurse Specialist Adult Health; Visit Provider Student in an Organized Health Care Education/Training Program | DX: S52.501D Unspecified fracture of the lower end of right radius, subsequent encounter for closed fracture with routine healing (principal); S52.601D Unspecified fracture of lower end of right ulna, subsequent encounter for closed fracture with routine healing; X58.XXXD Exposure to other specified factors, subsequent encounter | CPT/HCPCS: 73110; 99213 ==

== ENCOUNTER → 2022-10-10 08:43 | Outpatient (BNVA) | payer MEDICARE, SELFPAY | PROVIDERS: PCP Clinical Nurse Specialist Adult Health; Visit Provider Podiatrist Foot & Ankle Surgery | DX: B35.1 Tinea unguium (principal); M20.41 Other hammer toe(s) (acquired), right foot; M20.42 Other hammer toe(s) (acquired), left foot; N18.2 Chronic kidney disease, stage 2 (mild); I73.9 Peripheral vascular disease, unspecified | CPT/HCPCS: 11721 ==

== ENCOUNTER → 2023-01-16 15:45 | Outpatient (BNVA) | payer MEDICARE, SELFPAY | PROVIDERS: PCP Clinical Nurse Specialist Adult Health; Visit Provider Clinical Nurse Specialist Adult Health | DX: N18.2 Chronic kidney disease, stage 2 (mild) (principal); E55.9 Vitamin D deficiency, unspecified | CPT/HCPCS: 80053; 82306; 85025 ==

== ENCOUNTER 2023-04-27 06:00 | Outpatient (CLI) | payer OTHER, SELFPAY | END 2023-04-27 06:01 | LOC: SOT 04-28 10:41 | PROVIDERS: PCP Clinical Nurse Specialist Adult Health; Visit Provider Student in an Organized Health Care Education/Training Program | DX: Z46.89 Encounter for fitting and adjustment of other specified devices (principal); M24.541 Contracture, right hand | CPT/HCPCS: 97760; 99213; L3906 ==

== ENCOUNTER → 2023-04-27 09:56 | Outpatient (BNVA) | payer OTHER, MEDICAID, SELFPAY | PROVIDERS: PCP Clinical Nurse Specialist Adult Health; Visit Provider Student in an Organized Health Care Education/Training Program | DX: M72.0 Palmar fascial fibromatosis [Dupuytren] (principal); Z46.89 Encounter for fitting and adjustment of other specified devices; M24.541 Contracture, right hand | CPT/HCPCS: 73130; 97760; 99213; L3906 ==

== ENCOUNTER → 2023-07-14 10:51 | Outpatient (BNVA) | payer OTHER, MEDICAID, SELFPAY | PROVIDERS: PCP Clinical Nurse Specialist Adult Health; Visit Provider Clinical Nurse Specialist Adult Health | DX: N18.2 Chronic kidney disease, stage 2 (mild) (principal) | CPT/HCPCS: 80053 ==

== ENCOUNTER → 2023-09-28 09:48 | Outpatient (BNVA) | payer OTHER, MEDICAID, SELFPAY | PROVIDERS: PCP Clinical Nurse Specialist Adult Health; Visit Provider Podiatrist Foot & Ankle Surgery | DX: B35.1 Tinea unguium (principal); M20.41 Other hammer toe(s) (acquired), right foot; M20.42 Other hammer toe(s) (acquired), left foot; N18.2 Chronic kidney disease, stage 2 (mild); I73.9 Peripheral vascular disease, unspecified; L84 Corns and callosities | CPT/HCPCS: 11055; 11721 ==

== ENCOUNTER → 2023-12-19 10:39 | Outpatient (BNVA) | payer OTHER, MEDICAID, SELFPAY | PROVIDERS: PCP Clinical Nurse Specialist Adult Health; Visit Provider Podiatrist Foot & Ankle Surgery | DX: B35.1 Tinea unguium (principal); M20.41 Other hammer toe(s) (acquired), right foot; M20.42 Other hammer toe(s) (acquired), left foot; N18.2 Chronic kidney disease, stage 2 (mild); I73.9 Peripheral vascular disease, unspecified | CPT/HCPCS: 11721 ==

== ENCOUNTER → 2024-02-20 11:18 | Outpatient (BNVA) | payer OTHER, MEDICAID, SELFPAY | PROVIDERS: PCP Clinical Nurse Specialist Adult Health; Visit Provider Podiatrist Foot & Ankle Surgery | DX: B35.1 Tinea unguium (principal); M20.41 Other hammer toe(s) (acquired), right foot; M20.42 Other hammer toe(s) (acquired), left foot; N18.2 Chronic kidney disease, stage 2 (mild); I73.9 Peripheral vascular disease, unspecified; L84 Corns and callosities | CPT/HCPCS: 11056; 11721 ==

== ENCOUNTER → 2024-05-30 14:45 | Outpatient (BNVA) | payer MEDICARE, MEDICAID, SELFPAY | PROVIDERS: PCP Clinical Nurse Specialist Adult Health; Visit Provider Podiatrist Foot & Ankle Surgery | DX: I73.9 Peripheral vascular disease, unspecified (principal); B35.1 Tinea unguium; L84 Corns and callosities; M20.41 Other hammer toe(s) (acquired), right foot; M20.42 Other hammer toe(s) (acquired), left foot; N18.2 Chronic kidney disease, stage 2 (mild) | CPT/HCPCS: 11056; 11721 ==

== ENCOUNTER → 2024-08-01 14:22 | Outpatient (BNVA) | payer MEDICARE, MEDICAID, SELFPAY | PROVIDERS: PCP Clinical Nurse Specialist Adult Health; Visit Provider Podiatrist Foot & Ankle Surgery | DX: I73.9 Peripheral vascular disease, unspecified (principal); B35.1 Tinea unguium; L84 Corns and callosities; M20.41 Other hammer toe(s) (acquired), right foot; M20.42 Other hammer toe(s) (acquired), left foot; N18.2 Chronic kidney disease, stage 2 (mild) | CPT/HCPCS: 11056; 11721 ==

== ENCOUNTER → 2024-10-29 10:51 | Outpatient (BNVA) | payer MEDICARE, MEDICAID, SELFPAY | PROVIDERS: PCP Clinical Nurse Specialist Adult Health; Visit Provider Podiatrist Foot & Ankle Surgery | DX: I73.9 Peripheral vascular disease, unspecified (principal); B35.1 Tinea unguium; M20.41 Other hammer toe(s) (acquired), right foot; M20.42 Other hammer toe(s) (acquired), left foot; N18.2 Chronic kidney disease, stage 2 (mild) | CPT/HCPCS: 11721 ==

== ENCOUNTER → 2025-01-09 10:14 | Outpatient (BNVA) | payer MEDICARE, MEDICAID, SELFPAY | PROVIDERS: PCP Clinical Nurse Specialist Adult Health; Visit Provider Podiatrist Foot & Ankle Surgery | DX: I73.9 Peripheral vascular disease, unspecified (principal); B35.1 Tinea unguium; L84 Corns and callosities; M20.41 Other hammer toe(s) (acquired), right foot; M20.42 Other hammer toe(s) (acquired), left foot; N18.2 Chronic kidney disease, stage 2 (mild) | CPT/HCPCS: 11056; 11721 ==